=== PATIENT | female | born 1990 ===

== ENCOUNTER 2019-01-13 19:53 | Emergency (ER) | payer SELFPAY ==
[~2019-01-13] VITALS: Ht 162.6 cm; Wt 98.4 kg
[2019-01-13 20:41] LABS: APPEARANCE,URINE Clear (CLEAR); BILIRUBIN,URINE Negative (NEGATIVE); BLOOD, URINE Small Ery/uL (NEGATIVE); COLOR,URINE Yellow (YELLOW); KETONES,URINE Trace (NEGATIVE); LEUKOCYTE ESTERASE ,URINE Negative (NEGATIVE); NITRITE, URINE Negative (NEGATIVE); PROTEIN,URINE Negative (NEGATIVE); UGLUCOSE Negative (NEGATIVE); UROBILINOGEN,URINE 0.2 EU/dL (0.2)
[2019-01-13] MEDS ORDERED: AZITHROMYCIN 250 MG TABLET ONE (20:41)
[2019-01-13] MEDS ORDERED: CEFTRIAXONE 1 G VIAL ONE (20:41)
[2019-01-13] MEDS ORDERED: LIDOCAINE /MPF 1% VIAL 5 ML VIAL ONE (20:41)
[2019-01-13] MEDS ORDERED: IBUPROFEN 600 MG TABLET PO ONE ×2 (20:42→21:00)
[2019-01-13 20:47] LABS: BACTERIA,URINE Rare /HPF (None Seen)
[2019-01-13 20:48] LABS: SQUAMOUS EPITHELIAL CELL,UR Few /HPF (None Seen)
--- NOTE | 2019-01-13 20:55 | NUR ---
RX PROVIDED. Patient discharged to home in stable condition. Written and verbal after care instructions given. Patient verbalizes understanding of instruction.
[2019-01-13 20:56] VITALS: BP 134/78
[2019-01-13] MEDS ORDERED: CEFTRIAXONE 1 G VIAL IM ONE (21:00)
[2019-01-13] MEDS ORDERED: AZITHROMYCIN 250 MG TABLET PO ONE (21:00)
== END 2019-01-13 20:57 | disposition home or self-care (01) ==
LOC: ER 19:55
DX: A64 Unspecified sexually transmitted disease (principal); N72 Inflammatory disease of cervix uteri; N76.0 Acute vaginitis
CPT/HCPCS: 81001; 84703; 96372; 99283; J0696; J3490; 81000-TC

== ENCOUNTER 2021-01-03 18:53 | Emergency (ER) | payer SELFPAY ==
[~2021-01-03] VITALS: Ht 162.6 cm; Wt 98.9 kg
[2021-01-03 18:59] VITALS: BP 134/95
--- NOTE | 2021-01-03 19:57 | NUR ---
CALLED [facility]. SPOKE TO ASSOC[employer]ATE DATA SCIENTIST #[id number]. ASSOCIATE DATA SCIENTIST STATED WILL SEND OFFICER WITH ETA OF AT LEAST 1 HOUR.
--- NOTE | 2021-01-03 20:37 | NUR ---
[facility] AT BEDSIDE
--- NOTE | 2021-01-03 22:22 | NUR ---
Patient discharged to home in stable condition. Written and verbal after care instructions given. Patient verbalizes understanding of instruction.
== END 2021-01-03 22:23 | disposition home or self-care (01) ==
LOC: ER 18:56
DX: T76.21XA Adult sexual abuse, suspected, initial encounter (principal)